=== PATIENT | female | born 1990 | race Caucasian/White ===

== ENCOUNTER 2021-04-05 10:53 | Emergency (ER) | payer OTHER ==
[~2021-04-05 10:53] MED LIST: AMOXICILLIN500 MG PO; ZOFRAN8 MG PO
== END 2021-04-05 12:20 | disposition home or self-care (01) ==
LOC: FER 10:53
DX: S93.505A Unspecified sprain of left lesser toe(s), initial encounter (principal); W19.XXXA Unspecified fall, initial encounter; Y93.39 Activity, other involving climbing, rappelling and jumping off; Y92.009 Unspecified place in unspecified non-institutional (private) residence as the place of occurrence of the external cause
CPT/HCPCS: 73660

== ENCOUNTER 2021-06-08 12:23 | Emergency (ER) | payer OTHER ==
[2021-06-08] MEDS ORDERED: ZPAK PO (14:20)
== END 2021-06-08 14:46 | disposition home or self-care (01) ==
LOC: FER 12:23
DX: J32.0 Chronic maxillary sinusitis (principal)
CPT/HCPCS: 70486